=== PATIENT | female | born 1960 | race Two or more races ===

== ENCOUNTER 2021-10-03 05:55 | Day surgery (SDC) | payer OTHER, SELFPAY ==
[~2021-10-03] VITALS: Ht 170.2 cm; Wt 93.0 kg
[2021-10-03] MEDS ORDERED: fentaNYL citrate 0.05 MG/ML VIAL ONE (07:33)
[2021-10-03] MEDS ORDERED: LIDOCAINE 2% 100 MG/5 ML UJET TP ONE (07:33)
[2021-10-03] MEDS ORDERED: MIDAZOLAM 5 MG/5 ML VIAL ONE (07:33)
[2021-10-03] MEDS ORDERED: diphenhydrAMINE 50 MG/ML VIAL ONE (07:33)
[2021-10-03] MEDS ORDERED: fentaNYL citrate 0.05 MG/ML VIAL IVP ONE (12:55)
[2021-10-03] MEDS ORDERED: MIDAZOLAM 2 MG/2 ML VIAL IVP ONE (12:55)
[2021-10-03] MEDS ORDERED: diphenhydrAMINE 50 MG/ML VIAL IVP ONE (12:55)
== END 2021-10-03 08:47 | disposition home or self-care (01) ==
LOC: MDS 05:55 → MMU 05:56 → MDS 08:47
PROVIDERS: ATTEND Internal Medicine Gastroenterology
DX: Z12.11 Encounter for screening for malignant neoplasm of colon (principal); E78.5 Hyperlipidemia, unspecified; F41.9 Anxiety disorder, unspecified; Z80.0 Family history of malignant neoplasm of digestive organs; Z90.49 Acquired absence of other specified parts of digestive tract; Z88.0 Allergy status to penicillin; Z79.899 Other long term (current) drug therapy
CPT/HCPCS: 45378; 87426; J1200; J2250; J3010